=== PATIENT | female | born 1995 | race African-American/Black ===

== ENCOUNTER 2022-03-01 18:54 | Emergency (ER) | payer SELFPAY ==
--- NOTE | ~2022-03-01 | CT_ITS ---
EXAMINATION: CT abdomen pelvis w con DATE: 03/01/2022 21:31 INDICATION: Epigastric/abdominal discomfort with nausea and vomiting TECHNIQUE: Computed tomography (CT) of the abdomen and pelvis was performed with 100 mL Omnipaque-300 intravenous contrast. Automated exposure control and iterative reconstruction technique were employe d. The dose-length product was 192.51 mGy-cm. COMPARISON: None FINDINGS: Lung bases are clear. Heart size is normal. No pericardial or pleural effusion. Liver, gallbladder, s pleen, pancreas, bilateral adrenal glands and right kidney are normal. 5 mm left renal cyst. Bowels i ncluding appendix are normal. Bladder, anteverted uterus and bilateral adnexa are unremarkable. No fr ee intraperitoneal gas or fluid. No pathologically enlarged bones are unremarkable. lymphadenopathy. IMPRESSION: 1. No acute intra-abdominal/pelvic process. Reviewed, dictated and finalized at location A.
[2022-03-01 19:31] VITALS: BP 125/80; PULSE 54; RESP 22; TEMP 37; O2SAT 100
[2022-03-01] MEDS: METOCLOPRAMIDE HCL INJ 10 MG/2 ML VIAL IV PUSH (19:54)
[2022-03-01] MEDS: ONDANSETRON INJ 4 MG/2 ML VIAL IV PUSH (19:54)
[2022-03-01] MEDS: SODIUM CHLORIDE 0.9% IV 1,000 ML 999 ML IV CONT (19:55)
--- NOTE | 2022-03-01 19:58 | ED.GENADULT ---
HPI - General Adult General Chief complaint: Abdominal Pain Stated complaint: Abdominal pain/fever/light headed History of Present Illness HPI narrative: The patient is an otherwise healthy 26-year-old woman who has been having episodic epigastric abdominal discomfort for many months. The abdominal discomfort worsened on 02/16/2022. She was seen in the emergency room in [place] on 02/18/2022. A workup included blood/urine testing and a CT of the abdomen. She was discharged on hydrocodone for pain, zofran for nausea, and an 'antibiotic' for her abdominal pain. Her pain continued. she was seen by a PCP on 02/20/2022 and was diagnosed with acute COVID (her 4th). She was placed on GERD medication (omeprazole BID). She improved for the next few days. She now returns due to worsening epigastric abdominal discomfort for the last 2 days, constant in nature, waxing and waning in intensity but always present, associated with feeling anxious, tachypneic, tingling in the arms and legs with her hands locking up, paresthesias in the face arms and legs. She has had more than 20 episodes of emesis today and more than 20 episodes of emesis yesterday. Last menstrual period was 10 days ago. Has never been . She does smoke marijuana. No abdominal operations. No other past medical history. Related Data Home Medications Medication Instructions Recorded Confirmed omeprazole 20 mg capsule,delayed 20 mg PO BID 03/01/22 03/01/22 release Allergies Allergy/AdvReac Type Severity Reaction Status Date / Time No Known Allergies Allergy Verified 03/01/22 19:29 Review of Systems Review of Systems: All systems reviewed & are unremarkable except as noted in HPI and below Constitutional: Constitutional: Reports no additional constitutional complaints, Reports anorexia ( The lower lid take over the last few), Denies body ache(s), Denies chills, Denies excessive sweating, Reports fatigue, Denies fever(s), Denies frequent falls, Denies headache(s), Reports malaise and Denies poor appetite Eyes: Eyes: Reports no additional eye complaints, Denies blurry vision, Denies change in vision, Denies irritation, Denies itchy eyes and Denies photophobia ENT: Reports system reviewed and no additional complaints, except as documented, Reports Normal hearing present, Denies change in voice, Denies dysphagia, Denies vertigo, Denies dizziness, Denies ear discharge, Denies headache(s), Denies hearing loss, Denies hoarseness, Denies nasal congestion, Denies neck pain, Denies sinus pressure, Denies sore throat and Denies throat swelling Cardiovascular: Cardiovascular: Reports no additional cardiovascular complaints, Denies chest pain, Denies syncope, Denies rapid heart rate, Denies irregular heart rhythm, Denies leg edema, Denies dyspnea and Denies slow heart rate Respiratory: Respiratory: Reports no additional respiratory complaints, Denies cough, Denies dyspnea, Denies stridor and Denies wheezing Gastrointestinal: Gastrointestinal: Reports no additional gastrointestinal complaints, Reports abdominal pain, Denies melena, Denies hematochezia, Denies dysphagia, Denies diarrhea, Reports nausea and Reports vomiting Genitourinary: Genitourinary: Denies hematuria, Denies urinary frequency, Denies dysuria, Denies flank pain and Denies urinary urgency Musculoskeletal: Musculoskeletal: Reports no additional musculoskeletal complaints, Denies abnormal gait, Denies back pain, Denies myalgias, Denies arthralgias, Denies joint swelling, Denies limited range of motion, Reports muscle cramps, Denies muscle weakness, Denies neck pain and Reports numbness Integumentary/Breasts: Skin/Breast: Reports system reviewed and no additional complaints, except as docu, Denies breast pain, Denies change in pigmentation, Denies pruritus, Denies erythema and Denies wounds Neurologic: Reports system reviewed and no additional complaints, except as documented, Reports Normal hearing present, Denies Abnorma
[2022-03-01 20:07] LABS: Basophils Absolute Auto 0.04 K/mm3 (0.00-0.10); Basophils Percent Auto 0.3 % (0.0-1.0); Eosinophils Absolute Auto 0.01 K/mm3 (0.02-0.50); Eosinophils Percent Auto 0.1 % (1.0-6.0); Hematocrit 40.5 % (35.0-49.0); Hemoglobin 13.6 g/dL (12.0-15.0); Immature Granulocyte Absolute 0.07 K/mm3 (0.00-0.00); Immature Granulocyte Percent A 0.5 % (0.0-0.0); Lymphocytes Absolute Auto 1.42 K/mm3 (1.10-4.50); Mean Corpuscular HGB Conc 33.6 g/dL (32.0-36.0); Mean Corpuscular Hemoglobin 30.8 pg (27.0-31.0); Mean Corpuscular Volume 91.8 fL (78.0-102.0); Mean Platelet Volume 9.9 fl (9.2-11.8); Monocytes Absolute Auto 0.79 K/mm3 (0.10-0.90); Monocytes Percent Auto 5.5 % (2.0-11.0); Neutrophils Absolute Auto 11.9 K/mm3 (1.7-7.2); Neutrophils Percent Auto 83.6 % (50.0-70.0); Platelet Count Result 357 K/mm3 (150-420); Red Blood Count 4.41 M/mm3 (4.20-5.40); Red Cell Distribution Width 12.9 % (11.6-14.4); White Blood Count 14.3 K/mm3 (4.8-10.8)
[2022-03-01] MEDS: LORazepam INJ (*CRX) 2 MG/ML VIAL 0.5 MG IV PUSH (20:07)
[2022-03-01 20:21] LABS: SPREG INTERNAL CONTROL Positive; Serum Qual hCG Negative
[2022-03-01 20:26] LABS: Alanine Aminotransferase 24 U/L (14-59); Albumin Level 4.9 g/dL (3.4-5.0); Alkaline Phosphatase 52 U/L (46-116); Amylase 119 U/L (25-115); Anion Gap 20 mmol/L (8-16); Aspartate Amino Transferase 19 U/L (15-37); Bilirubin,Total 0.8 mg/dL (0.00-1.00); Blood Urea Nitrogen 15 mg/dL (7-18); Carbon Dioxide 20 mmol/L (21-32); Chloride 100 mmol/L (98-108); Estimated CRCL calculation 48 ml/min; Estimated Glomerular Filt Rate > 60; Lipase 75 U/L (73-393); Magnesium 1.8 mg/dL (1.8-2.4); Sodium 140 mmol/L (136-145); Total Protein 8.6 g/dL (6.4-8.2)
[2022-03-01 20:37] LABS: Ethanol < 3 mg/dL (0-6)
[2022-03-01 20:41] LABS: Glucose 100 mg/dL (70-99); Osmolality Calculated 290 mOsm/kg (285-295)
[2022-03-01 20:51] LABS: Lactic Acid Reflex 4.5 mmol/L (0.4-2.0)
[2022-03-01 21:02] VITALS: BP 108/76; PULSE 66; RESP 17; O2SAT 99
[2022-03-01 21:08] LABS: SARS-CoV-2 RNA PCR Negative (Negative)
[2022-03-01] MEDS: SODIUM CHLORIDE 0.9% IV 1,000 ML 500 ML IV CONT (21:08)
[2022-03-01] MEDS: MAG HYDROX/ALUMINUM HYD/SIMETH 30 ML, PHENobarb/HYOSCY/ATROPINE/SCOP 32.4 MG, LIDOCAINE... PO (21:11)
[2022-03-01 21:41] LABS: CRP < 0.2 mg/dL (0.0-0.9)
[2022-03-01 22:11] LABS: Add Urine Microscopic? YES; Appearance Urine Clear (Clear); Bilirubin Urine Negative (Negative); Blood Urine Negative (Negative); Color Urine Yellow (Yellow); Glucose Urine UA Negative (Negative); Ketones Urine 3+ (Negative); Leukocyte Esterase Ur Negative LEU/UL (Negative); Nitrate Urine Negative (Negative); Protein Urine 1+ (Negative); Specific Grav Ur 1.015 (1.010-1.020); Urobilinogen Urine 0.2 mg/dL (0.2-1.0)
[2022-03-01 22:17] LABS: Amphetamine Screen Urine Negative (Negative); Barbiturate Screen Urine Negative (Negative); Benzodiazepines Screen Urine Negative (Negative); Cannabinoid Screen Urine Positive (Negative); Cocaine Screen Urine Negative (Negative); Methadone Screen Urine Negative (Negative); Opiate Screen Urine Negative (Negative); Phencyclidine Screen Urine Negative (Negative)
[2022-03-01 22:20] LABS: Erythrocyte Sedimentation Rate 13 mm/hr (0-15)
[2022-03-01 22:20] LABS: Bacteria Urine 1+ /hpf; Mucus Urine Moderate /lpf; RBC Urine 0-2 /hpf (0-2); Squamous Epithelial Cell Urine Few /hpf (Few); WBC Urine 0-3 /hpf (0-3)
[2022-03-01 23:07] LABS: Reflex Lactic Acid Yes or No Add Lactic
[2022-03-01 23:45] LABS: Lactic Acid 0.7 mmol/L (0.4-2.0)
[2022-03-02 00:03] VITALS: BP 119/66; PULSE 74; RESP 17; TEMP 32.2; O2SAT 100
== END 2022-03-02 00:20 | disposition home or self-care (01) ==
PROVIDERS: Emergency Provider Emergency Medicine
DX: R11.2 Nausea with vomiting, unspecified (principal); R10.13 Epigastric pain; F41.9 Anxiety disorder, unspecified; Z20.822 Contact with and (suspected) exposure to COVID-19
CPT/HCPCS: 36415; 74177; 80053; 80307; 81001; 82150; 83605; 83690; 83735; 84703; 85025; 85652; 86140; 96361; 96374; 96375; 99284; A9270; C9803; J2060; J2405; J2765; J7030; Q9967; U0003; U0005